=== PATIENT | female | born 1970 | race Caucasian/White ===

== ENCOUNTER 2016-09-13 09:55 | Emergency (ER) | payer OTHER ==
[~2016-09-13] VITALS: Ht 165.1 cm; Wt 70.3 kg
[~2016-09-13 09:55] MED LIST: ATARAX25 MG PO; BENADRYL50 MG PO; CLARITIN10 MG PO; ELIMITE 5%60 GM T; HYDR12.5C PO; HYDROXYZINE HCL25 M1 PO; KEFLEX500 MG PO; KENALOG 0.1%80 GM T; KENALOG0.11 TP; MEDROL DOSEPAK4 MG PO; PREDNISONE10 MG PO; PROVENTIL0.09 MG/AC IH; TRIMOX500 MG PO; ZESTRIL10 MG PO
[2016-09-13 10:01] VITALS: BP 171/99
[2016-09-13] MEDS ORDERED: AMMONIUM LACTA237 ML TP (10:02)
[2016-09-13] MEDS ORDERED: CLOBETASOL PROP15 GM T (10:03)
[2016-09-13] MEDS ORDERED: LIDEX 0.05% CRE15 GM T (10:17)
[2016-09-13] MEDS ORDERED: PREDNISONE20 M1 PO (10:17)
== END 2016-09-13 10:30 | disposition home or self-care (01) ==
LOC: ED 09:55
DX: L30.9 Dermatitis, unspecified (principal); F17.200 Nicotine dependence, unspecified, uncomplicated; Z98.51 Tubal ligation status; Z79.899 Other long term (current) drug therapy; Z91.041 Radiographic dye allergy status

== ENCOUNTER → 2017-05-27 | Outpatient (CLI) | payer OTHER ==
[~2017-05-27] MED LIST changes: +AMMONIUM LACTA237 ML TP; +CLOBETASOL PROP15 GM T; +LIDEX 0.05% CRE15 GM T; +PREDNISONE20 M1 PO
[2017-05-27 14:10] LABS: BASO # 0.1 10*3/uL (0.0-0.1); BASO % 0.7 % (0.0-1.0); EOS # 0.3 10*3/uL (0.0-0.4); EOS % 3.7 % (1.0-4.0); HEMATOCRIT 46.3 % (37.0-47.0); HEMOGLOBIN 16.4 g/dl (12.0-16.0); LYMPH # 2.2 10*3/uL (1.3-4.4); LYMPH % 31.1 % (27.0-41.0); MEAN CELL VOLUME 100.2 fl (81.0-99.0); MEAN CORPUSCULAR HGB 35.5 pg (27.0-31.0); MEAN CORPUSCULAR HGB CONC 35.4 g/dl (33.0-37.0); MEAN PLATELET VOLUME 9.3 fl (9.6-12.3); MONO # 0.7 10*3/uL (0.1-1.0); MONO % 9.6 % (3.0-9.0); NEUT # 3.8 10*3/uL (2.3-7.9); NEUT % 54.8 % (47.0-73.0); PLATELET COUNT AUTOMATED 240 10*3/uL (130-400); RED BLOOD COUNT 4.62 10*6/uL (4.10-5.10); RED CELL DISTRI WIDTH 12.8 % (0-14.5)
[2017-05-27 14:37] LABS: ALBUMIN 3.3 gm/dl (3.1-4.5); BUN 14 mg/dl (7-24); CHLORIDE 104 mmol/L (98-107); CREATININE 0.83 mg/dL (0.55-1.02); SGOT/AST 22 IU/L (3-35); SGPT/ALT 37 U/L (12-78); SODIUM 138 mmol/L (136-145)
[2017-05-27 14:38] LABS: ALKALINE PHOSPHATASE 97 U/L (45-117); TOTAL PROTEIN 7.1 gm/dL (6.4-8.2)
[2017-05-28 13:03] LABS: HEPATITIS B SURFACE AG Negative (Negative); HEPATITIS C VIRUS ANTIBODY 0.1 s/co (0.0-0.9)
== END | disposition home or self-care (01) ==
LOC: LAB 13:22
PROVIDERS: Specialist
DX: L25.9 Unspecified contact dermatitis, unspecified cause (principal); L20.9 Atopic dermatitis, unspecified; L29.9 Pruritus, unspecified

== ENCOUNTER → 2020-01-13 | Outpatient (CLI) | payer OTHER | END | disposition home or self-care (01) | LOC: US 13:08 | PROVIDERS: ATTEND Nurse Practitioner Primary Care | DX: E04.2 Nontoxic multinodular goiter (principal); N60.02 Solitary cyst of left breast ==

== ENCOUNTER 2020-02-20 11:35 | Emergency (ER) | payer OTHER ==
[~2020-02-20] VITALS: Ht 162.5 cm; Wt 73.0 kg
[2020-02-20 11:44] VITALS: BP 156/93
[2020-02-20] MEDS ORDERED: NAPROSYN500 MG PO (13:45)
== END 2020-02-20 14:09 | disposition home or self-care (01) ==
LOC: ED 11:35
DX: S83.92XA Sprain of unspecified site of left knee, initial encounter (principal); Z91.041 Radiographic dye allergy status; Z79.899 Other long term (current) drug therapy; X58.XXXA Exposure to other specified factors, initial encounter; Y93.89 Activity, other specified; Y92.89 Other specified places as the place of occurrence of the external cause; Y99.8 Other external cause status

== ENCOUNTER → 2020-04-26 | Outpatient (CLI) | payer OTHER ==
[~2020-04-26] MED LIST changes: +NAPROSYN500 MG PO
== END | disposition home or self-care (01) ==
LOC: COVID19 14:45
PROVIDERS: ATTEND Nurse Practitioner Primary Care
DX: Z20.822 Contact with and (suspected) exposure to COVID-19 (principal); R11.0 Nausea

== ENCOUNTER → 2020-08-23 | Outpatient (CLI) | payer OTHER | END | disposition home or self-care (01) | LOC: RAD 14:34 | PROVIDERS: ATTEND Nurse Practitioner Primary Care | DX: M25.562 Pain in left knee (principal) ==

== ENCOUNTER → 2021-07-06 | Outpatient (CLI) | payer OTHER ==
[2021-07-06 13:04] LABS: BASO # 0.1 10*3/uL (0.0-0.1); BASO % 0.8 % (0.0-1.0); EOS # 0.5 10*3/uL (0.0-0.4); EOS % 5.5 % (1.0-4.0); LYMPH # 2.9 10*3/uL (1.3-4.4); LYMPH % 34.7 % (27.0-41.0); MEAN CELL VOLUME 95.7 fl (81.0-99.0); MEAN CORPUSCULAR HGB 33.4 pg (27.0-31.0); MEAN CORPUSCULAR HGB CONC 34.9 g/dl (33.0-37.0); MEAN PLATELET VOLUME 8.6 fl (9.6-12.3); MONO # 0.8 10*3/uL (0.1-1.0); MONO % 9.6 % (3.0-9.0); NEUT # 4.1 10*3/uL (2.3-7.9); NEUT % 49.2 % (47.0-73.0); PLATELET COUNT AUTOMATED 303 10*3/uL (130-400); RED BLOOD COUNT 4.91 10*6/uL (4.10-5.10); RED CELL DISTRI WIDTH 12.6 % (0-14.5); WHITE BLOOD COUNT 8.3 10*3/uL (4.8-10.8)
[2021-07-06 13:28] LABS: BUN 11 mg/dl (7-24); CHLORIDE 105 mmol/L (98-107); CREATININE 0.77 mg/dL (0.55-1.02); POTASSIUM 3.8 mmol/L (3.5-5.1); SGOT/AST 17 IU/L (3-35); SGPT/ALT 31 U/L (12-78); SODIUM 136 mmol/L (136-145); TOTAL PROTEIN 7.4 gm/dL (6.4-8.2)
[2021-07-06 13:37] LABS: ALKALINE PHOSPHATASE 113 U/L (45-117)
== END | disposition home or self-care (01) ==
LOC: LAB 12:45 → US 14:00
PROVIDERS: ATTEND Nurse Practitioner Primary Care
DX: N60.02 Solitary cyst of left breast (principal); L20.9 Atopic dermatitis, unspecified; I10 Essential (primary) hypertension

== ENCOUNTER → 2021-09-07 | Outpatient (CLI) | payer OTHER | END | disposition home or self-care (01) | LOC: US 14:00 | PROVIDERS: ATTEND Family Medicine | DX: N64.51 Induration of breast (principal) ==

== ENCOUNTER 2022-04-02 13:07 | Emergency (ER) | payer OTHER ==
[~2022-04-02] VITALS: Wt 71.7 kg
[2022-04-02 13:51] VITALS: BP 139/63
== END 2022-04-02 15:11 | disposition left against medical advice (07) ==
LOC: ED 13:07
DX: R05.9 Cough, unspecified (principal); Z53.21 Procedure and treatment not carried out due to patient leaving prior to being seen by health care provider

== ENCOUNTER → 2022-06-27 | Outpatient (CLI) | payer OTHER ==
[2022-06-27 14:59] LABS: BASO # 0.1 10*3/uL (0.0-0.1); BASO % 0.9 % (0.0-1.0); EOS # 0.3 10*3/uL (0.0-0.4); EOS % 3.9 % (1.0-4.0); HEMATOCRIT 46.8 % (37.0-47.0); LYMPH # 3.1 10*3/uL (1.3-4.4); LYMPH % 38.9 % (27.0-41.0); MEAN CELL VOLUME 98.5 fl (81.0-99.0); MEAN CORPUSCULAR HGB 33.5 pg (27.0-31.0); MEAN PLATELET VOLUME 8.7 fl (9.6-12.3); MONO # 0.7 10*3/uL (0.1-1.0); MONO % 8.2 % (3.0-9.0); NEUT # 3.8 10*3/uL (2.3-7.9); NEUT % 47.7 % (47.0-73.0); PLATELET COUNT AUTOMATED 275 10*3/uL (130-400); RED BLOOD COUNT 4.75 10*6/uL (4.10-5.10); RED CELL DISTRI WIDTH 13.6 % (0-14.5)
[2022-06-27 15:13] LABS: ALKALINE PHOSPHATASE 79 U/L (46-116); BUN 7 mg/dl (9-23); CHLORIDE 109 mmol/L (98-107); CHOLESTEROL 180 mg/dL (<200); LDL CHOLESTEROL 67 mg/dL (9-159); POTASSIUM 4.7 mmol/L (3.4-5.1); SGPT/ALT 26 U/L (10-49); TOTAL PROTEIN 6.7 gm/dL (6.0-8.0); TRIGLYCERIDES 142 mg/dl (<150)
[2022-06-29 13:07] LABS: TB1 Ag VALUE 0.02 IU/mL (.)
== END | disposition home or self-care (01) ==
LOC: LAB 14:27
PROVIDERS: ATTEND Nurse Practitioner Family
DX: Z13.220 Encounter for screening for lipoid disorders (principal); R53.83 Other fatigue; R73.9 Hyperglycemia, unspecified

== ENCOUNTER 2022-10-22 14:46 | Emergency (ER) | payer SELFPAY ==
[~2022-10-22] VITALS: Wt 68.0 kg
[2022-10-22 14:58] VITALS: BP 142/84
== END 2022-10-22 17:31 | disposition home or self-care (01) ==
LOC: ED 14:46
DX: H60.92 Unspecified otitis externa, left ear (principal); I10 Essential (primary) hypertension; Z91.041 Radiographic dye allergy status; Z98.51 Tubal ligation status

== ENCOUNTER 2024-10-16 10:33 | Emergency (ER) | payer OTHER ==
[~2024-10-16] VITALS: Ht 165.1 cm; Wt 61.2 kg
[2024-10-16] MEDS ORDERED: diphenhydrAMINE hydrochloride 50 MG/ML VIAL IV ONE (11:20)
[2024-10-16] MEDS ORDERED: Hydrocortisone Sodium Succin 100 MG/2 ML VIAL IV ONE (11:20)
[2024-10-16 11:33] LABS: BASO # 0.0 10*3/uL (0.0-0.1); BASO % 0.6 % (0.0-1.0); EOS # 0.2 10*3/uL (0.0-0.4); EOS % 3.5 % (1.0-4.0); MEAN CELL VOLUME 98.7 fl (81.0-99.0); MEAN CORPUSCULAR HGB 34.7 pg (27.0-31.0); MEAN PLATELET VOLUME 8.6 fl (9.6-12.3); MONO # 0.5 10*3/uL (0.1-1.0); MONO % 9.4 % (3.0-9.0); NEUT # 3.2 10*3/uL (2.3-7.9); NEUT % 64.5 % (47.0-73.0); NUCLEATED RED BLOOD CELL 0.0 % (0.0-0.0); NUCLEATED RED BLOOD CELL 0.0 10*3/uL (0.0-0.0); PLATELET COUNT AUTOMATED 208 10*3/uL (130-400); RED CELL DISTRI WIDTH 13.4 % (0-14.5)
[2024-10-16] MEDS ORDERED: Iodixanol 320 100 ML VIAL IV ONE (11:40)
[2024-10-16 11:49] LABS: BUN 8 mg/dl (9-23); SGPT/ALT 21 U/L (5-49)
[2024-10-16] MEDS ORDERED: EPINEPHrine Hydrochloride 1 MG/ML AMP IM ONE (12:15)
[2024-10-16 12:56] VITALS: BP 148/79
[2024-10-16] MEDS ORDERED: AMOX-CLAV 875-1 EACH PO (15:29)
== END 2024-10-16 17:16 | disposition home or self-care (01) ==
LOC: ED 10:33
PROVIDERS: Internal Medicine
DX: H66.92 Otitis media, unspecified, left ear (principal); I10 Essential (primary) hypertension; Z79.899 Other long term (current) drug therapy; Z91.041 Radiographic dye allergy status; Z98.51 Tubal ligation status; Z98.890 Other specified postprocedural states

== ENCOUNTER 2024-10-19 15:41 | Emergency (ER) | payer OTHER ==
[~2024-10-19] VITALS: Ht 165.1 cm; Wt 65.8 kg
[~2024-10-19 15:41] MED LIST changes: +AMOX-CLAV 875-1 EACH PO
[2024-10-19 15:59] VITALS: BP 145/81
[2024-10-19 17:15] LABS: BASO # 0.0 10*3/uL (0.0-0.1); BASO % 0.4 % (0.0-1.0); EOS # 0.1 10*3/uL (0.0-0.4); EOS % 2.2 % (1.0-4.0); MEAN CELL VOLUME 99.4 fl (81.0-99.0); MEAN CORPUSCULAR HGB 34.1 pg (27.0-31.0); MEAN PLATELET VOLUME 8.5 fl (9.6-12.3); MONO # 0.6 10*3/uL (0.1-1.0); MONO % 10.1 % (3.0-9.0); NEUT # 3.5 10*3/uL (2.3-7.9); NEUT % 64.5 % (47.0-73.0); NUCLEATED RED BLOOD CELL 0.0 % (0.0-0.0); NUCLEATED RED BLOOD CELL 0.0 10*3/uL (0.0-0.0); PLATELET COUNT AUTOMATED 150 10*3/uL (130-400); RED CELL DISTRI WIDTH 13.3 % (0-14.5)
[2024-10-19 17:27] LABS: ACT PARTIAL THROMBO TIME 30.8 SECONDS (20.0-32.1)
[2024-10-19 17:41] LABS: BUN 7 mg/dl (9-23); SGPT/ALT 29 U/L (5-49)
[2024-10-19] MEDS ORDERED: ACETAMINOPHEN 325 MG TAB PO ONE (18:05)
[2024-10-19] MEDS ORDERED: Water, Sterile 10 ML VIAL ONE (20:26)
== END 2024-10-19 20:01 | disposition home or self-care (01) ==
LOC: ED 15:41
PROVIDERS: Internal Medicine
DX: H66.90 Otitis media, unspecified, unspecified ear (principal); R07.89 Other chest pain; R51.9 Headache, unspecified; D75.1 Secondary polycythemia; M79.602 Pain in left arm; R19.7 Diarrhea, unspecified; Z91.041 Radiographic dye allergy status; Z79.899 Other long term (current) drug therapy